=== PATIENT | female | born 1960 | race Caucasian/White ===

== ENCOUNTER 2017-11-23 06:49 | Day surgery (SDC) | payer OTHER ==
[2017-11-23] MEDS ORDERED: MIDAZOLAM 1 MG/ML 2 ML INJ (09:05)
[2017-11-23] MEDS ORDERED: FENTAnyl 50 MCG/ML VIAL (09:05)
== END 2017-11-23 09:33 | disposition home or self-care (01) ==
LOC: GIL 06:49
DX: Z12.11 Encounter for screening for malignant neoplasm of colon (principal); K64.8 Other hemorrhoids
CPT/HCPCS: 45378